=== PATIENT | female | born 1970 | race African-American/Black ===

== ENCOUNTER 2018-10-24 10:25 | Outpatient (CLI) | payer OTHER ==
--- NOTE | 2018-10-24 11:24 | RAD ---
FIVE VIEWS OF THE CERVICAL SPINE: COMPARISON: None. HISTORY: Neck pain since June. FINDINGS: AP, lateral, open-mouth odontoid, and flexion/extension views of the cervical spine show normal heigh t and alignment of the vertebral bodies and intervertebral disks without fracture or subluxation. No prevertebral soft tissue swelling is seen. No degenerative changes are present. IMPRESSION: Unremarkable exam. POS: C
== END 2018-10-24 10:26 | disposition home or self-care (01) ==
LOC: BICRAD 10:25
PROVIDERS: ATTEND Specialist
DX: M54.2 Cervicalgia (principal); M79.12 Myalgia of auxiliary muscles, head and neck
CPT/HCPCS: 72050

== ENCOUNTER 2019-06-16 12:03 | Outpatient (CLI) | payer OTHER ==
--- NOTE | 2019-06-16 14:16 | MMO ---
Bilateral MAMMO Bilat Screen DDI. CLINICAL HISTORY: Patient is 49 years old and is seen for screening. The patient has no family history of breast cancer. The patient has no personal history of cancer. VIEWS: The views performed were: bilateral craniocaudal and bilateral mediolateral oblique. FILMS COMPARED: The present examination has been compared to prior imaging studies performed at [facility] on 06/30/2014, 07/01/2015, 07/02/2016 and 07/03/2017. This study has been interpreted with the assistance of computer-aided detection. MAMMOGRAM FINDINGS: There are scattered fibroglandular densities. There is a focal asymmetry seen in the upper region of the left breast. In the right breast, there are no suspicious masses, calcifications or areas of architectural distortion. IMPRESSION: FOCAL ASYMMETRY IN THE LEFT BREAST REQUIRES ADDITIONAL EVALUATION. SPOT COMPRESSION IS RECOMMENDED. AN ULTRASOUND EXAM IS RECOMMENDED IF NEEDED. ACR BI-RADS Category 0 - Incomplete: Need additional imaging evaluation. [facility] and the [facility] will notify the patient of the need for additional imaging services. MAMMOGRAPHY NOTE: 1. A negative mammogram report should not delay a biopsy if a dominant of clinically suspicious mass is present. 2. Approximately 10% to 15% of breast cancers are not detected by mammography. 3. Adenosis and dense breasts may obscure an underlying neoplasm. Reported by: TRINI GONG MD Electonically Signed: [id number]
== END 2019-06-16 12:04 | disposition home or self-care (01) ==
LOC: BICMAMMO 12:03
PROVIDERS: ATTEND Specialist
DX: Z12.31 Encounter for screening mammogram for malignant neoplasm of breast (principal); N64.89 Other specified disorders of breast
CPT/HCPCS: 77067

== ENCOUNTER 2019-07-16 08:12 | Outpatient (CLI) | payer OTHER ==
--- NOTE | 2019-07-16 08:52 | MMO ---
Left Breast MAMMO Unilat Diag DDI LT+CELIA. CLINICAL HISTORY: Patient is 49 years old and is seen for diagnostic exam. VIEWS: The views performed were: . FILMS COMPARED: The present examination has been compared to prior imaging studies performed at [facility] on 07/01/2015, 07/02/2016, 07/03/2017 and 06/16/2019. This study has been interpreted with the assistance of computer-aided detection. MAMMOGRAM FINDINGS: There are scattered fibroglandular densities. There are no suspicious masses, suspicious calcifications, or new areas of architectural distortion. IMPRESSION: THERE IS NO MAMMOGRAPHIC EVIDENCE OF MALIGNANCY. A ROUTINE FOLLOW-UP MAMMOGRAM IN 1 YEAR IS RECOMMENDED. THE RESULTS OF THIS EXAM WERE SENT TO THE PATIENT. ACR BI-RADS Category 1 - Negative MAMMOGRAPHY NOTE: 1. A negative mammogram report should not delay a biopsy if a dominant of clinically suspicious mass is present. 2. Approximately 10% to 15% of breast cancers are not detected by mammography. 3. Adenosis and dense breasts may obscure an underlying neoplasm. Reported by: Mary Anne MILLER Electonically Signed: [id number]
== END 2019-07-16 08:13 | disposition home or self-care (01) ==
LOC: BICMAMMO 08:12
PROVIDERS: ATTEND Specialist
DX: N64.89 Other specified disorders of breast (principal)
CPT/HCPCS: G0279

== ENCOUNTER 2019-09-23 23:59 | Emergency (ER) | payer OTHER ==
[2019-09-24] MEDS ORDERED: levETIRAcetam 1000 MG/100 ML PREMIX BAG ONE ×2 (01:26→01:27)
[2019-09-24] MEDS ORDERED: levETIRAcetam 500 MG/100 ML PREMIX BAG ONE (01:27)
[2019-09-24] MEDS ORDERED: lamoTRIgine 100 MG TAB PO SCH (02:45)
== END 2019-09-24 02:51 | disposition home or self-care (01) ==
LOC: ERS 23:59
DX: R56.9 Unspecified convulsions (principal); Z79.899 Other long term (current) drug therapy
CPT/HCPCS: 36415; 80175; 80177; 96365; J1953

== ENCOUNTER 2019-11-05 09:25 | Outpatient (CLI) | payer OTHER ==
--- NOTE | 2019-11-05 09:45 | RAD ---
EXAM: XR Tib Fib Rt Leg 2 View PROVIDED CLINICAL HISTORY: Pain status post injury FINDINGS: There is no evidence for fracture or other acute osseous abnormality. Alignment appears anatomic. Esperanza nt spaces appear preserved. IMPRESSION: No evidence for an acute osseous abnormality. If there is persistent clinical concern, conservative m anagement and follow-up imaging advised.
== END 2019-11-05 09:26 | disposition home or self-care (01) ==
LOC: BICRAD 09:25
PROVIDERS: ATTEND Specialist
DX: M25.571 Pain in right ankle and joints of right foot (principal)

== ENCOUNTER 2020-06-30 11:47 | Outpatient (CLI) | payer OTHER ==
--- NOTE | 2020-06-30 12:30 | MMO ---
Bilateral MAMMO Bilat Screen DDI. CLINICAL HISTORY: Patient is 50 years old and is seen for screening. The patient has no family history of breast cancer. The patient has no personal history of cancer. VIEWS: The views performed were: bilateral craniocaudal and bilateral mediolateral oblique. FILMS COMPARED: The present examination has been compared to prior imaging studies performed at [facility] on 07/02/2016, 07/03/2017, 06/16/2019 and 07/16/2019. This study has been interpreted with the assistance of computer-aided detection. MAMMOGRAM FINDINGS: There are scattered fibroglandular densities. There are no suspicious masses, suspicious calcifications, or new areas of architectural distortion. IMPRESSION: THERE IS NO MAMMOGRAPHIC EVIDENCE OF MALIGNANCY. A ROUTINE FOLLOW-UP MAMMOGRAM IN 1 YEAR IS RECOMMENDED. ACR BI-RADS Category 1 - Negative MAMMOGRAPHY NOTE: 1. A negative mammogram report should not delay a biopsy if a dominant of clinically suspicious mass is present. 2. Approximately 10% to 15% of breast cancers are not detected by mammography. 3. Adenosis and dense breasts may obscure an underlying neoplasm. Reported by: FRANKY SINGH MD Electonically Signed: [id number]
== END 2020-06-30 11:48 | disposition home or self-care (01) ==
LOC: BICMAMMO 11:47
PROVIDERS: ATTEND Specialist
DX: Z12.31 Encounter for screening mammogram for malignant neoplasm of breast (principal)
CPT/HCPCS: 77067

== ENCOUNTER 2021-07-03 13:12 | Outpatient (CLI) | payer MEDICAID, OTHER | END 2021-07-03 13:13 | disposition home or self-care (01) | LOC: BICMAMMO 13:12 | PROVIDERS: ATTEND Specialist | DX: Z12.31 Encounter for screening mammogram for malignant neoplasm of breast (principal) | CPT/HCPCS: 77067 ==

== ENCOUNTER 2022-07-05 08:47 | Outpatient (CLI) | payer OTHER | END 2022-07-05 08:48 | disposition home or self-care (01) | LOC: BICMAMMO 08:47 | PROVIDERS: ATTEND Specialist | DX: Z12.31 Encounter for screening mammogram for malignant neoplasm of breast (principal) | CPT/HCPCS: 77067 ==

== ENCOUNTER 2022-07-12 11:20 | Outpatient (CLI) | payer OTHER ==
[2022-07-12] MEDS ORDERED: Magnevist 469MG/ML 20 ML VIAL ONE (12:41)
== END 2022-07-12 11:21 | disposition home or self-care (01) ==
LOC: MRI 11:20
PROVIDERS: ATTEND Psychiatry & Neurology Neurology
DX: G40.209 Localization-related (focal) (partial) symptomatic epilepsy and epileptic syndromes with complex partial seizures, not intractable, without status epilepticus (principal)
CPT/HCPCS: 70553; 95816; 95957; A9579

== ENCOUNTER 2023-04-08 12:49 | Outpatient (CLI) | payer OTHER | END 2023-04-08 12:50 | disposition home or self-care (01) | LOC: RAD 12:49 | PROVIDERS: ATTEND Specialist | DX: M54.2 Cervicalgia (principal) | CPT/HCPCS: 72050 ==

== ENCOUNTER 2023-06-28 12:20 | Emergency (ER) | payer OTHER ==
[2023-06-28] MEDS ORDERED: Acetaminophen 500 MG TAB ONE (15:40)
== END 2023-06-28 16:32 | disposition home or self-care (01) ==
LOC: ERS 12:20
DX: S09.90XA Unspecified injury of head, initial encounter (principal); M54.2 Cervicalgia; E23.7 Disorder of pituitary gland, unspecified; W18.30XA Fall on same level, unspecified, initial encounter
CPT/HCPCS: 70450; 72125